=== PATIENT | female | born 1970 | race Caucasian/White ===

== ENCOUNTER 2021-09-01 13:54 | Emergency (ER) | payer OTHER ==
[~2021-09-01] VITALS: Ht 170.2 cm; Wt 72.6 kg
--- NOTE | 2021-09-01 14:15 | NUR ---
Triaged pt and placed in Hallway bed. Pt brought in [facility] from [facility]. Pt is on a 5150 hold. Pt c/o epigastric pain 6/10 non-radiating constant. Started abruptly an hour ago. NKA. Has hx of anxiety and depression. VSS. No chest pain and no sob. Denies n/v. Bed in lowest position.
[2021-09-01 14:19] VITALS: BP_SYST 111
--- NOTE | 2021-09-01 14:34 | NUR ---
X-Ray being done at bedside.
--- NOTE | 2021-09-01 14:50 | NUR ---
Patience cunha in [facility] - 09/01/21 at 1704 by [email or web address] Patient transported to radiology via wheelchair, accompanied by survey technologist.
--- NOTE | 2021-09-01 15:05 | NUR ---
ER at bedside examining patient.
--- NOTE | 2021-09-01 15:46 | NUR ---
Son called asked for update and update given. Son's number is
[2021-09-01 16:10] LABS: BASOPHILS % (AUTO) 0.9 % (0.0-2.0); EOSINOPHILS % (AUTO) 0.8 % (0.0-4.0); HEMOGLOBIN 11.2 g/dL (12.0-16.0); LYMPHOCYTES # (AUTO) 1.3 K/uL (1.0-5.5); LYMPHOCYTES % (AUTO) 23.3 % (20.5-51.5); MEAN CORPUSCULAR HEMOGLOBIN 29 pg (27-31); MEAN CORPUSCULAR HGB CONC 33 % (32-36); MEAN CORPUSCULAR VOLUME 88 fL (79.0-98.0); MONOCYTES # (AUTO) 0.4 K/uL (0.0-1.0); MONOCYTES % (AUTO) 7.7 % (1.7-9.3); NEUTROPHILS # (AUTO) 3.6 K/uL (1.8-7.7); NEUTROPHILS % (AUTO) 67.3 % (40.0-70.0); PLATELET COUNT (AUTO) 257 K/uL (130-430); RED BLOOD CELL COUNT(AUTO) 3.85 MIL/uL (4.2-6.2); WHITE BLOOD COUNT (AUTO) 5.4 K/uL (4.8-10.8)
[2021-09-01] MEDS ORDERED: LORazepam 2 MG/ML VIAL IM ONE ×3 (16:15→21:00)
--- NOTE | 2021-09-01 16:19 | NUR ---
Ativan 4mg given IM on right gluteous basilio using aseptic technique.
--- NOTE | 2021-09-01 16:20 | NUR ---
Sitter at bedside.
[2021-09-01 16:28] LABS: ANION GAP 6 (5-15); CALCIUM 8.9 mg/dL (8.4-11.0); CHLORIDE 101 mmol/L (98-107); CREATININE 0.76 mg/dL (0.55-1.30); GLUCOSE 106 mg/dL (70-99); SODIUM SERUM 137 mmol/L (136-145); UREA NITROGEN, BLOOD 19 mg/dL (8-21)
[2021-09-01 16:33] LABS: GFR AFRICAN AMERICAN 103 mL/min (>90)
[2021-09-01 16:50] LABS: ALANINE AMINOTRANSFERASE 16 U/L (12-78); ALBUMIN 3.5 g/dL (3.4-4.8); ASPARTATE AMINOTRANSFERASE 29 U/L (10-37); TOTAL BILIRUBIN 0.3 mg/dL (0.0-1.0)
--- NOTE | 2021-09-01 19:05 | NUR ---
Report given to Jenna from [facility] and transport will be here at 2300 to transport pt.
[2021-09-01] MEDS ORDERED: DIPHENHYDRAMINE INJ 50 MG/ML VIAL ONE (20:07)
[2021-09-01] MEDS ORDERED: LORazepam 2 MG/ML VIAL ONE (20:08)
[2021-09-01] MEDS ORDERED: DIPHENHYDRAMINE INJ 50 MG/ML VIAL IM ONE ×2 (20:15→21:00)
[2021-09-01] MEDS ORDERED: HALOPERIDOL LACTATE 5 MG/ML VIAL IM ONE ×3 (20:15→23:45)
--- NOTE | 2021-09-01 20:25 | NUR ---
Patience alphonse in [facility] - 09/01/21 at 2320 by [email or web address] Pt attempting to get out from bed , screaming and hallucinating, Dr Zhu notified, orders received for benadryl, Haldol and Ativan , pt respirations even and unlabored
--- NOTE | 2021-09-01 20:26 | NUR ---
PATIENT GOT COMBATIVE, PATIENT PLACED BACK IN BED, ON PULSE OX AND SEDATED AT BEDSIDE. SITTER REMAINS AT BEDSIDE.
[2021-09-01] MEDS ORDERED: HALOPERIDOL LACTATE 5 MG/ML VIAL ONE (20:57)
--- NOTE | 2021-09-01 21:00 | NUR ---
Pt attempting to get out from bed , screaming and hallucinating, Dr Zhu notified, orders received for benadryl, Haldol and Ativan , pt respirations even and unlabored
--- NOTE | 2021-09-01 23:20 | NUR ---
Report given to Lance FAULKNER
--- NOTE | 2021-09-01 23:42 | NUR ---
CALLED [facility] FOR UPDATED ETA ; 60-90 MINUTE EXTRA FROM CALL
--- NOTE | 2021-09-01 23:46 | NUR ---
CALLED [facility] REGARDING SITTER WHO LEFT AND NEVER CAME BACK. CALLER ANGELINA STATED THAT THEY WILL SEND ANOTHER SITTER. CALL BACK NUMBER IS [phone]
--- NOTE | 2021-09-02 00:31 | NUR ---
TRANSPORT HERE FOR PATIENT. DISCHARGE PAPERWORK GIVEN TO TRANSPORT EMS. PATIENT ALERT/ORIENTED.
[2021-09-02 00:32] VITALS: BP_SYST 115
--- NOTE | 2021-09-02 00:32 | NUR ---
Patient given written and verbal discharge instructions and verbalizes understanding. ER MD discussed with patient the results and treatment provided. Patient in stable condition. ID arm band removed. no Rx of given. Patient educated on pain management and to follow up with PMD. Pain Scale 0/10. Opportunity for questions provided and answered. Medication side effect fact sheet provided.
--- NOTE | 2021-09-02 01:53 | NUR ---
ANGELINA FROM [place] CALLED FOR MD REPORT TO BE FAXED TO [phone]. REPORT WAS FAXED
== END 2021-09-02 00:41 | disposition home or self-care (01) ==
LOC: SED 13:54
DX: R07.2 Precordial pain (principal)
CPT/HCPCS: 99285; 71045; 80053; 84703; 85025; 84484; 36415; 93005; 96372; J1200; J1630; J2060